=== PATIENT | female | born 1965 | race Caucasian/White ===

== ENCOUNTER 2019-08-04 13:50 | Emergency (ER) | payer MEDICAID, SELFPAY ==
--- NOTE | 2019-08-04 13:56 | XR_ITS ---
WS: [id number] PORTABLE CHEST HISTORY: cp COMPARISON: 10/31/2018 New interstitial thickening and increasing opacification at the lingula. Otherwise lungs are clear. N ormal vasculature. No pleural effusion or pneumothorax. Cardiac size: Normal. Mediastinum/Aorta: Calcified hilar nodes bilaterally. No osseous abnormality seen. XR/XR chest 1V portable [id number] IMPRESSION: Development of lingular pneumonia.
--- NOTE | 2019-08-04 13:56 | ECG_ITS ---
Measurements Intervals [place] Rate: 90 P: 63 RI: 173 QRS: 37 QRSD: 79 T: 54 QT: 367 QTc: 451 SINUS RHYTHM Compared to ECG 03/10/2017 17:48:15 T-wave abnormality no longer present Electronically Signed On 08-04-2019 16:19:48 VISUAL EFFECTS ARTIST by Yair Mario M.D. [email or web address]
--- NOTE | 2019-08-04 13:56 | ED_ITS ---
Entered by Celi Luke, acting as scribe for Zahida Rubio MD HPI - Chest Pain General: Chief Complaint: Chest Pain Stated Complaint: chest pain Time Seen by Provider: 08/04/19 13:56 Source: patient and EMS Mode of arrival: EMS Limitations: no limitations History of Present Illness: HPI narrative: 54 yo Female presents to ED with complaint of chest pain and shortness of breath. Pt states that the last time she had pain like this was when she had a pulmonary embolism in 2011. Pt states that her pain radiates to her left shoulder. MD complaint: chest pain Onset (ago): hour(s) (this morning) Timing of current episode: still present Prior episodes: Yes Onset: during rest Pain location: left chest Pain radiation: left shoulder Pain scale (0-10): 8 Quality: other (constant) Relieving factors: nothing Exacerbating factors: nothing Associated symptoms: Reports dyspnea; Deny abdominal pain, fever(s), nausea or vomiting Treatment prior to arrival: oxygen Risk Factors: Pulmonary embolism risk factors: history of pulmonary embolism Review of Systems Const: Denies: fever, chills, body aches or change in appetite Eyes: Denies: blurry vision or eye discomfort ENMT: Denies: throat pain or dental pain Card: Reports: chest pain, shortness of breath on exertion and shortness of breath when lying down Resp: Reports: shortness of breath GI: Denies: abdominal pain, nausea, vomiting or diarrhea : Denies: painful urination Musc: Denies: neck pain or back pain Skin/Breast: Denies: rash Neuro: Denies: headache Psych: Denies: depression [place]bin/Lymph: Denies: easy bruising All/Imm: Denies: hives PFSH ED PFSH: Statuses (acute, chronic, etc) shown below reflect problem list status as previously entered and may not be historically accurate Medical History (Updated 08/04/19 @ 16:35 by Zahida Rubio MD) Angina pectoris (Acute) Anxiety (Acute) Atrial fibrillation (Acute) Bipolar disorder (Acute) CAD (coronary artery disease) (Acute) COPD (chronic obstructive pulmonary disease) (Acute) CVA (cerebral vascular accident) (Acute) DVT (deep venous thrombosis) (Acute) Hiatal hernia (Acute) Hyperlipidemia (Acute) Peptic ulcer disease (Acute) Pneumonia (Acute) Social History Smoking and tobacco status: current every day smoker Physical Exam Const: COMMON NORMALS: no apparent distress, oriented x3 and healthy appearing HENMT: COMMON NORMALS: normocephalic and head/scalp atraumatic HEAD & SCALP: normocephalic and atraumatic Eye: COMMON NORMALS: PERRL and EOMs intact bilaterally PUPIL: Yes PERRL Neck/C-Spine: COMMON NORMALS: full ROM and supple Chest: COMMONS NORMALS: inspection of chest normal and palpation of chest normal Resp: COMMON NORMALS: normal respiratory effort, no retractions, no use of accessory muscles and clear to auscultation bilaterally AUSCULTATION: clear to auscultation bilaterally Cardio: COMMON NORMALS: regular rate, regular rhythm and no murmurs RATE: regular rate RHYTHM: regular rhythm GI: COMMON NORMALS: normal to inspection, nondistended, normoactive bowel sounds, soft to palpation, non-tender and no masses PALPATION: Yes soft Extremity: COMMON NORMALS: normal to inspection and full ROM LEFT UPPER EXTREMITY: Yes shoulder joint (Point tender over left shoulder) Left shoulder joint: Yes palpation (pain reproducible) Neuro: COMMON NORMALS: oriented x3, moves all extremities and no focal motor deficits Psych: COMMON NORMALS: mental status grossly normal, thought process normal and cooperative THOUGHT PROCESS: normal thought process Skin: COMMON NORMALS: no rashes or lesions noted and no wounds GENERAL SKIN EXAM: no rashes or lesions noted Course Vital Signs: Vital signs: Vital Signs Temperature 98 F 08/04/19 14:01 Pulse Rate 93 08/04/19 14:01 Respiratory Rate 18 08/04/19 14:24 Blood Pressure 141/89 08/04/19 14:01 Pulse Oximetry 98 08/04/19 14:24 MDM - Chest Pain Lab Data: Labs: Lab Results 08/04/19 08/04/19 08/04/19 Range/Units 14:09 14:09 14:09 WBC 10.4 H (4.0-10.0) 10^3/ uL RBC 4.32 (4.1-5.3) 10^6/u L Hgb 13.4 (11.5-15.3) g/dL Hct 41.9 (37.0-47.0) % MCV 97.0 (81-99) fL MCH 31.0 (28.0-34.0) pg MCHC 32.0 (30.0-36.0) g/dL RDW 12.6 (12.1-15.1) % Plt Count 212 (130-400) 10^3/c mm MPV 10.7 H (7.4-10.4) fL Neut % (Auto) 62.6 % Lymph % (Auto) 31.5 % [place] % (Auto) 4.1 % Eos % (Auto) 0.7 % Baso % (Auto) 0.7 % Neut # (Auto) 6.5 (1.8-7.7) 10^3/u L Lymph # (Auto) 3.3 (0.8-4.8) 10^3/u L [place] # (Auto) 0.4 (0.2-0.9) 10^3/u L Eos # (Auto) 0.1 (0.0-0.8) 10^3/u L Baso # (Auto) 0.1 (0.0-0.1) 10^3/u L Nucleated RBC % (a uto) 0 % Nucleated RBCs # 0.0 /100WBC PT 12.70 (10.5-13.3) SECO NDS INR 0.92 (0.8-1.2) D-Dimer 0.60 H (0-0.59) ug/mIFE U Sodium 137 (136-145) mmol/L Potassium 3.8 (3.5-5.1) mmol/L Chloride 101 (98-107) mmol/L Carbon Dioxide 23 (22-29) mmol/L Anion Gap 16.8 (5-19) BUN 9 (6-20) mg/dL Creatinine 0.9 (0.5-0.9) mg/dL GFR Calculation 65.0 L (90-130) mL/min Glucose 101 (74-109) mg/dL Calcium 10.0 (8.5-10.5) mg/dL Total Bilirubin 0.2 (0.15-1.2) mg/dL AST 15 (0-32) U/L ALT 10 (0-33) U/L Alkaline Phosphata se 83 (35-105) IU/L Troponin T Baselin e (0-10) ng/mL Troponin T 120 Min [place] (0-10) ng/mL Total Protein 7.4 (6.6-8.7) g/dL Albumin 4.1 (3.5-5.2) g/dL Globulin 3.3 (1.3-4.6) g/dL 08/04/19 08/04/19 Range/Units 14:09 16:04 WBC (4.0-10.0) 10^3/ uL RBC (4.1-5.3) 10^6/u L Hgb (11.5-15.3) g/dL Hct (37.0-47.0) % MCV (81-99) fL MCH (28.0-34.0) pg MCHC (30.0-36.0) g/dL RDW (12.1-15.1) % Plt Count (130-400) 10^3/c mm MPV (7.4-10.4) fL Neut % (Auto) % Lymph % (Auto) % [place] % (Auto) % Eos % (Auto) % Baso % (Auto) % Neut # (Auto) (1.8-7.7) 10^3/u L Lymph # (Auto) (0.8-4.8) 10^3/u L [place] # (Auto) (0.2-0.9) 10^3/u L Eos # (Auto) (0.0-0.8) 10^3/u L Baso # (Auto) (0.0-0.1) 10^3/u L Nucleated RBC % (a uto) % Nucleated RBCs # /100WBC PT (10.5-13.3) SECO NDS INR (0.8-1.2) D-Dimer (0-0.59) ug/mIFE U Sodium (136-145) mmol/L Potassium (3.5-5.1) mmol/L Chloride (98-107) mmol/L Carbon Dioxide (22-29) mmol/L Anion Gap (5-19) BUN (6-20) mg/dL Creatinine (0.5-0.9) mg/dL GFR Calculation (90-130) mL/min Glucose (74-109) mg/dL Calcium (8.5-10.5) mg/dL Total Bilirubin (0.15-1.2) mg/dL AST (0-32) U/L ALT (0-33) U/L Alkaline Phosphata se (35-105) IU/L Troponin T Baselin e 6 (0-10) ng/mL Troponin T 120 Min [place] 6.00 (0-10) ng/mL Total Protein (6.6-8.7) g/dL Albumin (3.5-5.2) g/dL Globulin (1.3-4.6) g/dL Imaging Data^: CXR: Radiologist's impression: [place] [address] XRay Report Signed Patient: Jenny Hughes #: [id number] : 1965Acct#:[id number] Age/Sex: 54 / FADM Date: 08/04/19 Loc: ERRoom/Bed: Attending Dr: Ordering Provider/Ordering MD: Zahida Rubio MD Date of Service: 08/04/19 Procedure(s): XR chest 1V portable [id number] Accession Number(s): [id number] Report Number: [id number] WS: [id number] PORTABLE CHEST HISTORY: cp COMPARISON: 10/31/2018 New interstitial thickening and increasing opacification at the lingula. Otherwise lungs are clear. Normal vasculature. No pleural effusion or pneumothorax. Cardiac size: Normal. Mediastinum/Aorta: Calcified hilar nodes bilaterally. No osseous abnormality seen. XR/XR chest 1V portable [id number] IMPRESSION: Development of lingular pneumonia. Dictated By:Marybeth Romero DO Signed By:Marybeth Romero DOSigned Date/Time:08/04/19 1427 DD/ 1426 CTA Chest: Radiologist's impression: [address] [place] [address] CT Scan Report Signed Patient: Jenny Hughes #: [id number] : 1965Acct#:[id number] Age/Sex: 54 / FADM Date: 08/04/19 Loc: ERRoom/Bed: Attending Dr: Ordering Provider/Ordering MD: Zahida Rubio MD Date of Service: 08/04/19 Procedure(s): CT angio chest PE protcl [id number] Accession Number(s): [id number] Report Number: [id number] WS: [id number] CT CHEST ANGIOGRAPHY WITH REFORMATS HISTORY: cp TECHNIQUE: Contiguous axial images are obtained through the chest during arterial injection of intravenous contrast. Images are reconstructed to evaluate the pulmonary arteries. MIP imaging also reviewed. All CT scans at [facility] use at least one of these dose optimization techniques: automated exposure control; mA and/or kV adjustment per patient size (includes targeted exams where dose is matched to clinical indication); or iterative reconstruction. CONTRAST: Omnipaque 350; 95 mL IV. DLP: 458.12 mGy.cm COMPARISON: 05/05/2015 Excellent enhancement of the pulmonary arteries. No filling defects or pulmonary emboli. Pulmonary artery is equal size to the aorta. Mild atherosclerosis of aorta. No aneurysm or dissection. Cardiac chamber size is normal. No pericardial or pleural effusions. Mild haziness over both lungs. Mild dependent changes at the lung bases. Benign granulomata. Benign mediastinal and hilar lymph nodes. Exophytic cyst from the upper pole of the LEFT kidney measures 2.4 cm and is unchanged since 05/05/2015. Visualized liver and adrenal glands are negative. No destructive bone lesions. There is an acute posterior right-sided rib fracture at the ninth rib. Small amount of pleural thickening at the site of the rib fracture. CT/CT angio chest PE protcl [id number] IMPRESSION: 1. No pulmonary embolism. 2. Acute nondisplaced RIGHT ninth rib fracture with adjacent pleural thickening. 3. Mild haziness over both lungs probably related to smoking history. No pneumonia. Dictated By:Marybeth Romero DO Signed By:Marybeth Romero DOSigned Date/Time:08/04/19 1550 DD/ 1544 EKG Data^: EKG 1: Attestation: I personally reviewed and interpreted this EKG as follows: EKG interpretation date: 08/04/19 EKG interpretation time: 14:03 Interpretation: nsr hr [address] or t wave abnormalities qrs 79 qtc 415 Discharge Plan Discharge Patient Disposition: Home, Self-Care Clinical Impression: Atypical chest pain Condition: Stable Prescriptions: New Robaxin-750 750 mg tablet 750 mg PO Q6H Qty: 30 RF: 0 EC-Naprosyn 500 mg tablet,delayed release (DR/EC) 500 mg PO BID PRN (Reason: pain) Qty: 20 RF: 0 Discharge Orders: Discharge Order (Routine); Ordered 08/04/19 Ordered By: Zahida Rubio Referrals: Julia Arroyo DO [Primary Care Provider] - 4-7 days Discharge Diet: Advance as tolerated Discharge Activity: Resume usual activity Patient Instructions: Chest Pain (ED) Coding Level of Care Code ED Ve Teacher for Chg Fwd Exam Problem Focused The documentation recorded by the Marly boswell Carmen, accurately reflects the service I personally performed and the decisions made by Ramiro higginbotham Korby, MD Aug 04, 2019 13:50
[2019-08-04 14:01] VITALS: BP 141/89; PULSE 93; RESP 16; TEMP 36.6; O2SAT 94; BMI 22.3
[2019-08-04 14:22] LABS: INR 0.92 (0.8-1.2)
[2019-08-04 14:24] VITALS: RESP 18; O2SAT 98
[2019-08-04] MEDS: morphine 4 mg/mL SDV 1 mL IVP (14:24)
[2019-08-04 14:29] LABS: Basophils # 0.1 10^3/uL (0.0-0.1); Basophils % 0.7 %; Eosinophils # 0.1 10^3/uL (0.0-0.8); Eosinophils % 0.7 %; Hematocrit 41.9 % (37.0-47.0); Hemoglobin 13.4 g/dL (11.5-15.3); Lymphocytes # 3.3 10^3/uL (0.8-4.8); Lymphocytes % 31.5 %; Mean Platelet Volume 10.7 fL (7.4-10.4); Monocytes # 0.4 10^3/uL (0.2-0.9); Monocytes % 4.1 %; Neutrophils # 6.5 10^3/uL (1.8-7.7); Neutrophils % 62.6 %; Nucleated Red Blood Cells % 0 %; Platelet Count 212 10^3/cmm (130-400); Red Blood Count 4.32 10^6/uL (4.1-5.3); Red Cell Distribution Width 12.6 % (12.1-15.1); White Blood Count 10.4 10^3/uL (4.0-10.0)
[2019-08-04 14:30] LABS: Alanine Aminotransferase 10 U/L (0-33); Albumin Level 4.1 g/dL (3.5-5.2); Alkaline Phosphatase 83 IU/L (35-105); Anion Gap 16.8 (5-19); Aspartate Amino Transferase 15 U/L (0-32); Blood Urea Nitrogen 9 mg/dL (6-20); Carbon Dioxide 23 mmol/L (22-29); Chloride 101 mmol/L (98-107); Globulin 3.3 g/dL (1.3-4.6); Glucose 101 mg/dL (74-109); Potassium 3.8 mmol/L (3.5-5.1); Sodium 137 mmol/L (136-145); Total Bilirubin 0.2 mg/dL (0.15-1.2); Total Protein 7.4 g/dL (6.6-8.7); Troponin(5th) Baseline 6 ng/mL (0-10)
--- NOTE | 2019-08-04 14:47 | CT_ITS ---
WS: [id number] CT CHEST ANGIOGRAPHY WITH REFORMATS HISTORY: cp TECHNIQUE: Contiguous axial images are obtained through the chest during arterial injection of intrav enous contrast. Images are reconstructed to evaluate the pulmonary arteries. MIP imaging also reviewe d. All CT scans at [facility] use at least one of these dose optimization techniques: aut omated exposure control; mA and/or kV adjustment per patient size (includes targeted exams where dose is matched to clinical indication); or iterative reconstruction. CONTRAST: Omnipaque 350; 95 mL IV. DLP: 458.12 mGy.cm COMPARISON: 05/05/2015 Excellent enhancement of the pulmonary arteries. No filling defects or pulmonary emboli. Pulmonary ar erika is equal size to the aorta. Mild atherosclerosis of aorta. No aneurysm or dissection. Cardiac ch mitesh size is normal. No pericardial or pleural effusions. Mild haziness over both lungs. Mild dependent changes at the lung bases. Benign granulomata. Benign m ediastinal and hilar lymph nodes. Exophytic cyst from the upper pole of the LEFT kidney measures 2.4 cm and is unchanged since 05/05/20 15. Visualized liver and adrenal glands are negative. No destructive bone lesions. There is an acute posterior right-sided rib fracture at the ninth rib. Small amount of pleural thickening at the site o f the rib fracture. CT/CT angio chest PE protcl [id number] IMPRESSION: 1. No pulmonary embolism. 2. Acute nondisplaced RIGHT ninth rib fracture with adjacent pleural thickenin g. 3. Mild haziness over both lungs probably related to smoking history. No pneum onia.
[2019-08-04] MEDS: iohexol 350 mg/mL 100 mL Btl IV (15:05)
[2019-08-04] MEDS: ketorolac 30 mg/mL INJ 15 MG IVP (15:35)
[2019-08-04] MEDS: ondansetron 2 mg/ML SDV 2 mL 4 MG IVP (15:35)
[2019-08-04 16:28] LABS: Troponin 5 2HR Delta 0 ABS# (0-10)
[2019-08-04 16:43] VITALS: BP 132/85; PULSE 68; RESP 18; O2SAT 98
== END 2019-08-04 16:53 | disposition home or self-care (01) ==
PROVIDERS: Emergency Provider Emergency Medicine; Family Provider Family Medicine; PCP Family Medicine
DX: R07.89 Other chest pain (principal); I25.119 Atherosclerotic heart disease of native coronary artery with unspecified angina pectoris; I48.91 Unspecified atrial fibrillation; J44.9 Chronic obstructive pulmonary disease, unspecified; E78.5 Hyperlipidemia, unspecified; F17.210 Nicotine dependence, cigarettes, uncomplicated
CPT/HCPCS: 36415; 71045; 71275; 80053; 84484; 85025; 85378; 85610; 93005; 96374; 99281; 99284; J1885; J2270; J2405; Q9967

== ENCOUNTER → 2019-08-19 13:55 | Outpatient (BNVA) | payer SELFPAY | PROVIDERS: Family Provider Family Medicine; PCP Family Medicine; Visit Provider Nurse Practitioner | DX: F43.12 Post-traumatic stress disorder, chronic (principal); F42.9 Obsessive-compulsive disorder, unspecified; F15.21 Other stimulant dependence, in remission; F17.218 Nicotine dependence, cigarettes, with other nicotine-induced disorders | CPT/HCPCS: 99214 ==

== ENCOUNTER 2019-09-20 17:53 | Inpatient (IN) | payer MEDICAID, SELFPAY ==
[2019-09-20 18:05] VITALS: BP 111/83; PULSE 100; RESP 16; TEMP 36.7; O2SAT 98; BMI 23.0
--- NOTE | 2019-09-20 18:29 | ED_ITS ---
Entered by Celi Luke, acting as scribe for Boom Ramires DO HPI - Chest Pain General: Chief Complaint: Chest Pain Stated Complaint: CHEST PAIN Time Seen by Provider: 09/20/19 18:04 Source: patient Mode of arrival: EMS Limitations: no limitations History of Present Illness: HPI narrative: 54 yo Female presents to ED with complaint of chest pain. Pt states that this started at 1700 today. Pt states that she had left armpain that radiated down her arm and she had tingling. Pt states that she took nitro on the way to the ED in [place]. Pt states that she was driving when the pain started. Pt states that she has a history of heart attacks. Pt states that she is hurting right now, has dry mouth, and is woozy. Pt's PCP is Dr. Arroyo. Pt states that she has a history of PE. Pt states that she has sharp pain upon inspiration. MD complaint: chest pain Pertinent past history: prior SD Onset (ago): hour(s) Timing of current episode: episodic and still present Prior episodes: Yes Onset: during rest Pain location: substernal Pain radiation: left arm Pain scale (0-10): 7 Quality: sharp Relieving factors: nothing Exacerbating factors: inspiration Context: history of DVT/PE Associated symptoms: Deny abdominal pain, dyspnea, fever(s), nausea, palpitations or vomiting Treatment prior to arrival: nitroglycerin Review of Systems Const: Denies: fever or chills Eyes: Denies: change in vision or blurry vision ENMT: Denies: Change in hearing, nose bleeds, post nasal drip or facial/sinus pain Card: Reports: chest pain; Denies: palpitations, irregular heart rhythm, edema or swelling of feet/ankles Resp: Reports: pain on inspiration; Denies: shortness of breath, productive cough, non-productive cough or wheezing GI: Denies: abdominal pain, nausea or vomiting : Denies: painful urination Musc: Reports: extremity pain; Denies: neck pain, back pain, redness or joint warmth Skin/Breast: Denies: rash, itching or redness Neuro: Denies: headache, dizziness or vertigo Psych: Denies: anxiety PFSH ED PFSH: Medical History (Updated 09/20/19 @ 20:18 by Dario Ball MD) Alcohol dependence, in remission Angina pectoris Anxiety Atrial fibrillation Bipolar disorder CAD (coronary artery disease) COPD (chronic obstructive pulmonary disease) CVA (cerebral vascular accident) DVT (deep venous thrombosis) Hiatal hernia Hyperlipidemia Nicotine dependence, cigarettes, with other nicotine-induced disorders Obsessive-compulsive disorder, unspecified Other stimulant dependence, in remission Peptic ulcer disease Peripheral vascular disease INOCENCIA elevated near 1.4 done in 2016 Pneumonia Post-traumatic stress disorder, chronic Surgical History (Updated 09/20/19 @ 20:18 by Dario Ball MD) H/O cardiac catheterization 2016 Normal coronary vessels EF 70% H/O: hysterectomy History of hip surgery History of partial colectomy Family History (Updated 09/20/19 @ 20:16 by Dario Ball MD) Other CAD (coronary artery disease) Cancer Diabetes Hypertension Social History Smoking and tobacco status: light tobacco smoker cigarettes Smoking risk assessment/counseling performed?: Yes Tobacco counseling given: counseling >3 minutes Physical Exam Const: GENERAL APPEARANCE: well developed ORIENTATION/CONSCIOUSNESS: Yes oriented to person, Yes oriented to place and Yes oriented to time HENMT: COMMON NORMALS: normocephalic, external ears normal and external nose normal HEAD & SCALP: normocephalic FACE & SINUS: normal facial exam NOSE: external nose normal and no nasal discharge EXTERNAL EAR: Yes external ears normal MOUTH: tongue normal Eye: COMMON NORMALS: PERRL, EOMs intact bilaterally and conjunctivae normal EYELID: eyelids normal CONJUNCTIVA: Yes conjunctivae normal PUPIL: Yes PERRL Neck/C-Spine: COMMON NORMALS: full ROM GENERAL: No tracheal deviation Chest: COMMONS NORMALS: inspection of chest normal; negative for palpation of chest normal CHEST: Yes tenderness Resp: COMMON NORMALS: clear to auscultation bilaterally EFFORT & INSPECTION: No tachypneic, No respiratory distress, No retractions, No uses accessory muscles and No tracheal deviation AUSCULTATION: clear to auscultation bilaterally, no rhonchi, no wheezes and lung sounds not diminished Cardio: COMMON NORMALS: regular rate and regular rhythm RATE: regular rate RHYTHM: regular rhythm HEART SOUNDS: no murmurs PERIPHERAL PULSES: radial pulses present GI: INSPECTION: No abdominal distension AUSCULTATION: No hyperactive bowel sounds and No hypoactive bowel sounds PALPATION: No guarding and No rigid PERCUSSION: no dullness to percussion and no tympanic to percussion Neuro: SENSORIUM/ORIENTATION: Yes oriented to person, Yes oriented to place and Yes oriented to time Psych: COMMON NORMALS: mental status grossly normal Skin: COMMON NORMALS: no rashes or lesions noted GENERAL SKIN EXAM: no rashes or lesions noted Course Consultations: Consultation #1: mart Vital Signs: Vital signs: Vital Signs Temperature 99.3 F 09/20/19 22:42 Pulse Rate 81 09/20/19 22:42 Respiratory Rate 21 H 09/20/19 22:42 Blood Pressure 119/75 09/20/19 22:42 Pulse Oximetry 96 09/20/19 22:42 MDM - Chest Pain MDM Narrative: Medical decision making narrative: 54-year-old female evidently with a history of pulmonary embolism. She says that she has had a couple of heart attacks, but is never had a stent placed. She had a angiogram 2 years ago with no intervention. She presents with pain, worse with inspiration. She is somewhat tender in the chest. Her first troponin was negative. Her d-dimer is negative. Her EKG is essentially normal with a normal axis and no ST changes. However, she had a short run of ventricular tachycardia on the monitor in the ER, and was quite symptomatic with it, clutching her chest during that time. She will be observed for 24 hours for continued monitoring. Lab Data: Labs: Lab Results 09/20/19 09/20/19 09/20/19 Range/Units 18:42 18:42 18:42 WBC 9.3 (4.0-10.0) 10^3/ uL RBC 4.48 (4.1-5.3) 10^6/u L Hgb 13.6 (11.5-15.3) g/dL Hct 41.7 (37.0-47.0) % MCV 93.1 (81-99) fL MCH 30.4 (28.0-34.0) pg MCHC 32.6 (30.0-36.0) g/dL RDW 12.4 (12.1-15.1) % Plt Count 224 (130-400) 10^3/c mm MPV 11.0 H (7.4-10.4) fL Neut % (Auto) 52.6 % Lymph % (Auto) 41.7 % [place] % (Auto) 4.1 % Eos % (Auto) 0.6 % Baso % (Auto) 0.8 % Neut # (Auto) 4.9 (1.8-7.7) 10^3/u L Lymph # (Auto) 3.9 (0.8-4.8) 10^3/u L [place] # (Auto) 0.4 (0.2-0.9) 10^3/u L Eos # (Auto) 0.1 (0.0-0.8) 10^3/u L Baso # (Auto) 0.1 (0.0-0.1) 10^3/u L Nucleated RBC % (a uto) 0 % Nucleated RBCs # 0.0 /100WBC PT 12.60 (10.5-13.3) SECO NDS INR 0.92 (0.8-1.2) APTT 26.4 (23.9-36.7) SECO NDS D-Dimer (0-0.59) ug/mIFE U Sodium 136 (136-145) mmol/L Potassium 4.3 (3.5-5.1) mmol/L Chloride 102 (98-107) mmol/L Carbon Dioxide 23 (22-29) mmol/L Anion Gap 15.3 (5-19) BUN 10 (6-20) mg/dL Creatinine 0.8 (0.5-0.9) mg/dL GFR Calculation 74.5 L (90-130) mL/min Glucose 93 (65-115) mg/dL Calculated Osmolal ity 278 L (285-295) mOsm/k g Calcium 9.8 (8.5-10.5) mg/dL Total Bilirubin 0.2 (0.15-1.2) mg/dL AST 16 (0-32) U/L ALT 7 (0-33) U/L Alkaline Phosphata se 70 (35-105) IU/L Troponin T Baselin e (0-10) ng/mL NT-Pro-B Natriuret Pep 27 (0-125) pg/mL Total Protein 6.7 (6.6-8.7) g/dL Albumin 4.2 (3.5-5.2) g/dL Globulin 2.5 (1.3-4.6) g/dL 09/20/19 09/20/19 Range/Units 18:42 18:42 WBC (4.0-10.0) 10^3/ uL RBC (4.1-5.3) 10^6/u L Hgb (11.5-15.3) g/dL Hct (37.0-47.0) % MCV (81-99) fL MCH (28.0-34.0) pg MCHC (30.0-36.0) g/dL RDW (12.1-15.1) % Plt Count (130-400) 10^3/c mm MPV (7.4-10.4) fL Neut % (Auto) % Lymph % (Auto) % [place] % (Auto) % Eos % (Auto) % Baso % (Auto) % Neut # (Auto) (1.8-7.7) 10^3/u L Lymph # (Auto) (0.8-4.8) 10^3/u L [place] # (Auto) (0.2-0.9) 10^3/u L Eos # (Auto) (0.0-0.8) 10^3/u L Baso # (Auto) (0.0-0.1) 10^3/u L Nucleated RBC % (a uto) % Nucleated RBCs # /100WBC PT (10.5-13.3) SECO NDS INR (0.8-1.2) APTT (23.9-36.7) SECO NDS D-Dimer 0.33 (0-0.59) ug/mIFE U Sodium (136-145) mmol/L Potassium (3.5-5.1) mmol/L Chloride (98-107) mmol/L Carbon Dioxide (22-29) mmol/L Anion Gap (5-19) BUN (6-20) mg/dL Creatinine (0.5-0.9) mg/dL GFR Calculation (90-130) mL/min Glucose (65-115) mg/dL Calculated Osmolal ity (285-295) mOsm/k g Calcium (8.5-10.5) mg/dL Total Bilirubin (0.15-1.2) mg/dL AST (0-32) U/L ALT (0-33) U/L Alkaline Phosphata se (35-105) IU/L Troponin T Baselin e 6 (0-10) ng/mL NT-Pro-B Natriuret Pep (0-125) pg/mL Total Protein (6.6-8.7) g/dL Albumin (3.5-5.2) g/dL Globulin (1.3-4.6) g/dL Discharge Plan Discharge Patient Disposition: Admitted As Inpatient Admit Provider: Dario Ball Discharge Date/Time: 09/20/19 22:22 Coding Level of Care Code ED Straw Hat Machine Operator for Chg Fwd Exam Comprehensive The documentation recorded by the Marly boswell Carmen, accurately reflects the service I personally performed and the decisions made by , Boom Ramires, DO
--- NOTE | 2019-09-20 18:33 | XR_ITS ---
WS: [id number] XR chest 1V portable [id number] REASON FOR EXAM: cp FINDINGS: Calcified lymph nodes are seen in the mediastinum and hilar areas bilaterally the largest i n the mediastinum. The lung [place] are adequately aerated. There is no pneumonia, pleural effusion, pulmonary edema, There is a small calcified granuloma in the right lung base. There is no hilar or apical abnormalities. XR/XR chest 1V portable [id number] IMPRESSION: Granulomatous changes in the lymph nodes Small granuloma right lower lung No active processes.
[2019-09-20 18:54] LABS: Basophils # 0.1 10^3/uL (0.0-0.1); Basophils % 0.8 %; Eosinophils # 0.1 10^3/uL (0.0-0.8); Eosinophils % 0.6 %; Hematocrit 41.7 % (37.0-47.0); Hemoglobin 13.6 g/dL (11.5-15.3); Lymphocytes # 3.9 10^3/uL (0.8-4.8); Lymphocytes % 41.7 %; Mean Corpuscular HGB Conc 32.6 g/dL (30.0-36.0); Mean Corpuscular Hemoglobin 30.4 pg (28.0-34.0); Mean Corpuscular Volume 93.1 fL (81-99); Monocytes # 0.4 10^3/uL (0.2-0.9); Monocytes % 4.1 %; Neutrophils # 4.9 10^3/uL (1.8-7.7); Neutrophils % 52.6 %; Nucleated Red Blood Cells % 0 %; Platelet Count 224 10^3/cmm (130-400); Red Blood Count 4.48 10^6/uL (4.1-5.3); Red Cell Distribution Width 12.4 % (12.1-15.1); White Blood Count 9.3 10^3/uL (4.0-10.0)
[2019-09-20 19:02] LABS: INR 0.92 (0.8-1.2)
[2019-09-20 19:03] LABS: Partial Thromboplastin Time 26.4 SECONDS (23.9-36.7)
[2019-09-20] MEDS: ondansetron 2 mg/ML SDV 2 mL 4 MG IVP (19:05)
[2019-09-20 19:06] VITALS: RESP 18; O2SAT 97
[2019-09-20] MEDS: morphine 4 mg/mL SDV 1 mL IVP ×4 (19:06→22:18)
[2019-09-20 19:10] LABS: Troponin(5th) Baseline 6 ng/mL (0-10)
[2019-09-20 19:23] LABS: Alanine Aminotransferase 7 U/L (0-33); Albumin Level 4.2 g/dL (3.5-5.2); Alkaline Phosphatase 70 IU/L (35-105); Anion Gap 15.3 (5-19); Aspartate Amino Transferase 16 U/L (0-32); Blood Urea Nitrogen 10 mg/dL (6-20); Calcium 9.8 mg/dL (8.5-10.5); Carbon Dioxide 23 mmol/L (22-29); Chloride 102 mmol/L (98-107); Globulin 2.5 g/dL (1.3-4.6); Glomerular Filtration Rate 74.5 mL/min (90-130); Glucose 93 mg/dL (65-115); NT Pro B Type Natriuretic Pept 27 pg/mL (0-125); Osmolality Calculated 278 mOsm/kg (285-295); Potassium 4.3 mmol/L (3.5-5.1); Sodium 136 mmol/L (136-145); Total Bilirubin 0.2 mg/dL (0.15-1.2); Total Protein 6.7 g/dL (6.6-8.7)
[2019-09-20 19:28] LABS: D Dimer 0.33 ug/mIFEU (0-0.59)
[2019-09-20 19:55] VITALS: RESP 16
--- NOTE | 2019-09-20 20:09 | P.HP_ITS ---
Providers/Chief Complaint Primary Care Provider: Julia Arroyo DO Chief Complaint: CHEST PAIN History of Present Illness Jenny Hughes is a 54 year old female with a multiple comorbid conditions, established coronary disease, recurrent admissions in the past due to chest pain with stress test almost every year in last 3 years, cardiac catheterization 2012 at [place] which revealed normal coronary vessels, she was diagnosed with nonobstructive coronary disease, repeat coronary angiogram 2015, her stress tests have been negative in the past today she is presenting with chest pain. Patient is stating that today she was driving back to [place] around 5 PM with her son and future [id number] when she started experiencing sharp stabbing pain which was substernal, she asked her son to drive and she sat in the passenger seat, took 1 sublingual nitroglycerin which subsided her pain to some extent but it reappeared after 5 minutes, at that time she asked her son to tack puller machine and call 911. this second episode she described as butterfly-like feeling in her chest which subsided on its own. Patient is stating that she smokes half a pack a day, she is trying to cut down on her alcohol she has been successfully controlling her alcohol addiction at home, she denies chest pain on exertion, orthopnea, PND, diarrhea, dysuria, recent traveling or flulike symptoms she does endorse to shortness of breath on exertion, does not use oxygen at home. She is fairly active for her age. Diagnostics in ER revealed normal EKG, troponin not significantly high, she was chest pain-free, she was well to be discharged but on telemetry nonsustained V. tach was noticed and then she started experiencing chest discomfort at that time, decision was made to admit her overnight to monitor her heart rhythm, when I went to see her she was eating turkey sandwich, she was chest pain-free, hemodynamically stable Review of Systems Const: Denies: fever, chills or change in weight Eyes: Denies: change in vision or photophobia ENMT: Denies: throat pain or uvular edema Card: Reports: chest pain, palpitations, irregular heart rhythm and shortness of breath on exertion; Denies: edema, swelling of feet/ankles, lightheadedness, syncope, pre-syncope or shortness of breath when lying down Resp: Reports: shortness of breath; Denies: productive cough or non-productive cough GI: Denies: abdominal pain, nausea or coffee grounds in vomit : Denies: flank pain or difficulty urinating Musc: Denies: neck pain or back pain Skin/Breast: Denies: rash, itching or skin pain Neuro: Denies: headache, numbness in extremities or weakness in extremities Psych: Denies: anxiety, depression or sleeping less Endo: Denies: excessive urination, excessive thirst or cold intolerance Corbin/Lymph: Denies: easy bruising All/Imm: Denies: hives Medications/Allergies Home Medications Medication Instructions Recorded Confirmed Last Taken Type cyclobenzaprine 10 mg PO BID 09/20/19 09/20/19 09/20/19 09:30 History estradiol 1 mg PO DAILY 09/20/19 09/20/19 09/20/19 09:30 History naproxen 500 mg PO BID 09/20/19 09/20/19 09/20/19 09:30 History oxycodone-acetaminophen [Percocet] 2 tab PO BID 09/20/19 09/20/19 09/20/19 09:30 History Allergies Allergy/AdvReac Type Severity Reaction Status Date / Time acetaminophen [From Lortab] Allergy ALGY-Hives Verified 08/04/19 14:33 baclofen Allergy ADR-Faintin Verified 08/04/19 14:33 g hydrocodone [From Lortab] Allergy ALGY-Hives Verified 08/04/19 14:33 ibuprofen Allergy ADR-Vomitin Verified 08/04/19 14:32 g PFSH Acute PFSH: Medical History (Updated 09/20/19 @ 23:05 by Dario Ball MD) Alcohol dependence, in remission Angina pectoris Anxiety Atrial fibrillation Bipolar disorder CAD (coronary artery disease) COPD (chronic obstructive pulmonary disease) CVA (cerebral vascular accident) DVT (deep venous thrombosis) Hiatal hernia Hyperlipidemia Nicotine dependence, cigarettes, with other nicotine-induced disorders Obsessive-compulsive disorder, unspecified Other stimulant dependence, in remission Peptic ulcer disease Peripheral vascular disease INOCENCIA elevated near 1.4 done in 2016 Pneumonia Post-traumatic stress disorder, chronic Surgical History (Updated 09/20/19 @ 20:18 by Dario Ball MD) H/O cardiac catheterization 2016 Normal coronary vessels EF 70% H/O: hysterectomy History of hip surgery History of partial colectomy Family History (Updated 09/20/19 @ 20:16 by Dario Ball MD) Other CAD (coronary artery disease) Cancer Diabetes Hypertension Social History Smoking and tobacco status: light tobacco smoker cigarettes Smoking risk assessment/counseling performed?: Yes Tobacco counseling given: counseling >3 minutes Vitals/I&O/Wt Last Vital Signs Temp 98.1 F 09/20/19 18:05 Pulse 100 09/20/19 18:05 Resp 16 09/20/19 19:55 BP 111/83 09/20/19 18:05 Pulse Ox 97 09/20/19 19:06 Weight last 48 hrs Weight 58.967 kg Physical Exam Narrative: EXAM NARRATIVE: This is a very pleasant middle-aged woman, Appropriate grooming S1, S2 no signs of heart failure, giving nondetectable EOMI, PERRLA Lung auscultation reveals bilateral breath sounds without adventitious sounds, no active respiratory stress Abdomen soft, nontender, nondistended bowels are present Neurologically nonfocal exam Skin does not show any sign ischemia gangrene ulcer Appropriate mood and affect Data : 09/20/19 18:42 09/20/19 18:42 A&P Assessment and plan (1) Atypical chest pain: Status: Acute Code(s): R07.89 - Other chest pain (2) Nonsustained ventricular tachycardia: Status: Acute Code(s): I47.2 - Ventricular tachycardia (3) Smoker: Status: Acute Code(s): F17.200 - Nicotine dependence, unspecified, uncomplicated Additional A&P Information Atypical chest pain Patient is able to pinpoint her area of chest pain, it is reproducible, did not completely relieved with nitroglycerin, troponins negative, EKG does not show any ischemic changes Telemetry to second read of nonsustained V. tach We will check magnesium and TSH level I will add beta-lamont low-dose and discontinue propanolol Echo in the morning to see any wall motion versus valvular abnormalities Active smoker: Counseled on smoking cessation, patient does not want to use any nicotine replacement therapies at the moment Alcohol abuse: Patient is stating that she is successfully recovering from her alcohol addiction History of hiatal hernia and peptic ulcer disease: No active complaint, continue Protonix and sucralfate that she takes at home Chronic herpes suppressive therapy : Continue acyclovir, no abnormality of kidney Full code Cardiac diet DVT prophylaxis: Lovenox Attestations Medical Necessity Statement*: Anticipating discharge in less than 48 hours after getting echo in the morning to rule out any wall motion abnormality Time Spent in Patient Care: 40 Coding Level of Care Code Acute Healthcare Analyst for [facility] Diagnoses Atypical chest pain R07.89 Nonsustained ventricular tachycardia I47.2 Smoker F17.200
--- NOTE | 2019-09-20 20:33 | ECG_ITS ---
Measurements Intervals [place] Rate: 72 P: 63 ND: 188 QRS: 26 QRSD: 91 T: 46 QT: 410 QTc: 450 SINUS RHYTHM Compared to ECG 08/04/2019 14:03:48 No significant changes Electronically Signed On 09-21-2019 17:24:17 CDT by Yair Mario M.D. [email or web address]
[2019-09-20] MEDS: lidocaine 2% viscous 15 ML, aluminum-mag hydrox-simethicon 30 ML, sucralfate oral liq 1 GM PO (20:36)
[2019-09-20 21:01] LABS: Troponin 5 2HR Delta 0 ABS# (0-10)
[2019-09-20 21:48] VITALS: BP 111/73; PULSE 78; RESP 18; O2SAT 95
[2019-09-20 22:18] VITALS: RESP 18; O2SAT 98
--- NOTE | 2019-09-20 22:30 | PC.NURSE ---
Admitted to room 112-1 via wheelchair from ED with complaint of sharp stabbing pain in my back. Oriented to room. Denies complaints at this time. Just need my night time meds. Assessment completed and documented. Will monitor.
[2019-09-20 22:42] VITALS: BP 119/75; PULSE 81; RESP 21; TEMP 37.4; O2SAT 96
[2019-09-20 23:35] LABS: Thyroid Stimulating Hormone 1.18 uIU/mL (0.27-4.20)
[2019-09-20] MEDS: PARoxetine 20 mg Tablet 10 MG PO (23:44)
[2019-09-20] MEDS: enoxaparin 40 mg/0.4 mL Syringe SUBCUT (23:46)
[2019-09-21] VITALS (9 sets, daily range): BP systolic 83–115; BP diastolic 49–75; PULSE 77–87; RESP 16–21; TEMP 36.4–37.4; O2SAT 91–96
[2019-09-21] MEDS: trazodone 100 mg Tablet PO ×2 (00:21→21:08)
[2019-09-21] MEDS: quetiapine 100 mg Tablet 400 MG PO ×2 (00:22→21:09)
[2019-09-21 01:17] LABS: Troponin 5 6HR Delta 0 ng/L (0-12)
[2019-09-21 05:19] LABS: Basophils # 0.1 10^3/uL (0.0-0.1); Basophils % 0.9 %; Eosinophils # 0.1 10^3/uL (0.0-0.8); Eosinophils % 1.2 %; Hematocrit 39.1 % (37.0-47.0); Hemoglobin 12.5 g/dL (11.5-15.3); Lymphocytes # 3.7 10^3/uL (0.8-4.8); Mean Corpuscular Hemoglobin 30.3 pg (28.0-34.0); Mean Corpuscular Volume 94.7 fL (81-99); Monocytes # 0.3 10^3/uL (0.2-0.9); Monocytes % 4.5 %; Neutrophils # 2.3 10^3/uL (1.8-7.7); Neutrophils % 36.1 %; Nucleated Red Blood Cells % 0 %; Platelet Count 202 10^3/cmm (130-400); Red Blood Count 4.13 10^6/uL (4.1-5.3); Red Cell Distribution Width 12.6 % (12.1-15.1); White Blood Count 6.4 10^3/uL (4.0-10.0)
[2019-09-21 05:40] LABS: Alanine Aminotransferase 7 U/L (0-33); Albumin Level 3.5 g/dL (3.5-5.2); Alkaline Phosphatase 62 IU/L (35-105); Anion Gap 13.8 (5-19); Aspartate Amino Transferase 15 U/L (0-32); Blood Urea Nitrogen 12 mg/dL (6-20); Calcium 9.2 mg/dL (8.5-10.5); Carbon Dioxide 25 mmol/L (22-29); Chloride 103 mmol/L (98-107); Globulin 2.7 g/dL (1.3-4.6); Glucose 109 mg/dL (65-115); Osmolality Calculated 283 mOsm/kg (285-295); Potassium 3.8 mmol/L (3.5-5.1); Sodium 138 mmol/L (136-145); Total Bilirubin 0.2 mg/dL (0.15-1.2); Total Protein 6.2 g/dL (6.6-8.7)
[2019-09-21] MEDS: sucralfate 1 gm Tablet PO ×4 (06:09→21:08)
[2019-09-21] MEDS: aspirin 81 mg EC Tablet PO (08:11)
[2019-09-21] MEDS: gabapentin 300 mg Capsule 600 MG PO ×2 (08:11→17:26)
[2019-09-21] MEDS: pantoprazole DR 40 mg Tablet PO (08:11)
[2019-09-21] MEDS: metoprolol tartrate 25 mg Tablet 12.5 MG PO ×2 (08:11→17:26)
[2019-09-21] MEDS: acyclovir 400 mg Tablet PO (08:12)
[2019-09-21] MEDS: isosorbide mononitrate ER 30 mg Tablet 15 MG PO (08:12)
[2019-09-21] MEDS: oxyCODONE-APAP 10-325 mg Tablet 1 TAB PO ×2 (09:34→21:07)
--- NOTE | 2019-09-21 11:13 | PC.NURSE ---
patient asked to walk around the unit after a few min with no return to room this nurse went to look for patient Found locked out side of the hospital Patient stated I just wanted fresh air. I didn't know I would get locked out Patient educated patient on the importance of staying on the unit where she is being treated due to the high risk of injury patient verbalized understanding and was escorted by this nurse back to her bed
--- NOTE | 2019-09-21 14:14 | ECG_ITS ---
NAME OF STUDY: LEXISCAN SESTAMIBI STRESS TEST INDICATION: Chest Pain PROCEDURE: At the baseline, the blood pressure was 109/62 mm Hg with a heart rate of 65 bpm. The electrocardiogram showed normal sinus rhythm, normal axis and normal ST and T's. The Lexiscan was infused over a period of 20 seconds. A total of 0.4 milligrams of Lexiscan was infused. The stress phase was continued for a total of 5 minutes. Heart rate at the end of the stress phase was 87 bpm, oxygen saturation 98% with a blood pressure 151/94 mmHg. The EKG at the peak infusion revealed sinus rhythm with no significant ST-T wave changes. Sestamibi was injected 20 seconds after the Lexiscan infusion. Blood pressure at the end of the recovery phase was 94/60 mmHg, oxygen saturation 98% with a heart rate of 83 beats per minute. CONCLUSION: 1. Normal EKG response to LexiScan infusion. 2. No LexiScan induced chest pain or cardiac arrhythmia. 3. Normal blood pressure and heart rate response. 4. Sestamibi/sestamibi perfusion scan pending; see separate report. Electronically Signed On 09-22-2019 13:26:06 CDT by Morena Orr M.D. [id number]
--- NOTE | 2019-09-21 15:28 | PC.CHAP ---
Pastoral Care Encounter/Spiritual Assessment Type of Contact [] Declined commercial drafter visit [] Patient/Family/Request visit [] Outpatient visit [] Follow-up visit [] Physician referral [] Code/Alert [] Routine visit [] Staff referral [] Actively dying [x] Patient sleeping [] Family support [] [] Out of room [] Palliative care [] [] Receiving care in room [] Pre-surgical visit [] Trauma [] Long length of stay [] ICU visit [] Other: Relational/Emotional Strength [] Patient feels connected with others/family/visitors/staff [] Distress [] Loneliness/isolation [] Abandonment Spirituality of Patient [] Person of Elizabeth [] Attends Hindu of their Elizabeth [] Believes in Prayer [] Reads Bible or Lutheran materials [] There are Spiritual issues to be addressed Sap Director Interventions [] Prayer [] Active listening [] Non-anxious presence [] Spiritual/emotional support [] Crisis/trauma care [] Spiritual counseling [] Bereavement support [] Provided bereavement packet [] Provided Bible/devotional materials [] Provided toy/stuffed animal, coloring book to patient or family member [] Provided Communion [] Anointing/[place] [] Salvation [] Completed spiritual assessment [] Other: Impact on Illness or Injury [] Angry [] Fearful [] Anxious [] Often cries [] Exhaustion [] Unable to work [] Unable to attend muslim [] Unable to walk/stand [] Unable to read [] Unable to drive [] Unable to eat/drink [] Unable to sleep [] Unable to be with family [] Patient intubated [] Other: Summary Patient was sleeping at the time of commercial drafter visit. Sap Director referred patient for a follow up visit by incoming commercial drafter. Patient visit was attempted by Sap Director Panchito Mcgee. Time spent with patient 7 minutes
--- NOTE | 2019-09-21 18:10 | P.PN_ITS ---
Subjective Subjective: Interval history: Patient states that she had an episode of chest pain yesterday, while driving, substernal, lasting a few minutes, much like the substernal chest pain when she had a cardiac catheterization, continues to smoke, does have a family history of CAD in her father, her last cardiac catheterization in 2017 showed a 30% disease in the RCA, states that the last ti me she saw Dr. Major was about a year ago, no other episodes of chest palpitations, no repeat episodes of nonsustained V. tach Vitals/I&O/Wt Last Vital Signs Temp 97.6 F 09/21/19 15:59 Pulse 77 09/21/19 15:59 Resp 18 09/21/19 15:59 BP 95/64 09/21/19 15:59 Pulse Ox 93 09/21/19 15:59 09/21/19 09/21/19 09/21/19 06:59 14:59 22:59 Intake Total 120 / 120 920 / 920 240 / 1160 Balance 120 / 120 920 / 920 240 / 1160 Weight last 48 hrs Weight 58.967 kg Physical Exam Const: COMMON NORMALS: no apparent distress and oriented x3 HENMT: COMMON NORMALS: normocephalic HEAD & SCALP: normocephalic Neck/C-Spine: COMMON NORMALS: no JVD Resp: COMMON NORMALS: normal respiratory effort, no retractions, no use of accessory muscles and clear to auscultation bilaterally AUSCULTATION: clear to auscultation bilaterally Cardio: COMMON NORMALS: no JVD, regular rate, regular rhythm, S1 normal heart sound and S2 normal heart sound RATE: regular rate RHYTHM: regular rhythm HEART SOUNDS: S1 normal and S2 normal GI: COMMON NORMALS: normal to inspection, nondistended, normoactive bowel sounds, soft to palpation, non-tender, no hepatosplenomegaly, no masses and no bruits PALPATION: Yes soft and Yes no hepatosplenomegaly Extremity: COMMON NORMALS: normal capillary refill, no clubbing, cyanosis or edema, no calf tenderness and no pedal edema Neuro: COMMON NORMALS: oriented x3 Psych: COMMON NORMALS: mental status grossly normal Data : 09/21/19 05:00 09/21/19 05:00 A&P Assessment and plan (1) Nonsustained ventricular tachycardia: Status: Acute Code(s): I47.2 - Ventricular tachycardia (2) Smoker: Status: Acute Code(s): F17.200 - Nicotine dependence, unspecified, uncomplicated (3) Chest pain: -Given significant risk factors, cardiac symptoms do sound cardiac in nature, history of 30% disease in RCA, episode of nonsustained V. tach in the emergency room -No significant troponin elevation, acute ST-T wave changes -N.p.o. midnight, cardiac stress test tomorrow morning -Continue aspirin, statin, beta-lamont, echocardiogram pending Status: Acute Code(s): R07.9 - Chest pain, unspecified Additional A&P Information Active smoker: Counseled on smoking cessation, patient does not want to use any nicotine replacement therapies at the moment Alcohol abuse: Patient is stating that she is successfully recovering from her alcohol addiction History of hiatal hernia and peptic ulcer disease: No active complaint, continue Protonix and sucralfate that she takes at home Chronic herpes suppressive therapy : Continue acyclovir, no abnormality of kidney Full code Cardiac diet DVT prophylaxis: Lovenox Attestations Medical Necessity Statement*: She requires hospitalization for chest pain, nonsustained V. tach Coding Level of Care Code Acute Order Builder Loader for [facility] Diagnoses Nonsustained ventricular tachycardia I47.2 Smoker F17.200 Chest pain R07.9
[2019-09-21] MEDS: atorvastatin 40 mg Tablet PO (21:07)
[2019-09-21] MEDS: PARoxetine 20 mg Tablet 10 MG PO (21:08)
--- NOTE | 2019-09-21 21:53 | PC.NURSE ---
Patient up ambulating earlier this shift in the [place]. This nurse found out that she had went down to the ED door and went outside to smoke. Informed patient that this facility was a smoke free facility and asked her about a nicotene patch. Patient states, Those patches don't work on me.....I have to have a cigarette now and then...I just have too. This nurse spoke with patient about smoking cessation. 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 Will monitor.
[2019-09-21] MEDS: enoxaparin 40 mg/0.4 mL Syringe SUBCUT (22:37)
--- NOTE | 2019-09-21 22:52 | USCV_ITS ---
Jenny Hughes Age: 54 Gender: F : 1965 Exam Date: 09/21/2019 09:45 Ordering Phys: Dario Ball MD Technologist: Joselito Barboza Exam Location: [facility] [place] Indication: CHEST PAIN BP: 86 / 49 HR: 75 Rhythm: Sinus Technical Quality: Good MEASUREMENTS (Male / Female) Normal Values 2D ECHO LV Diastolic Diameter PLAX 4.2 cm 4.2 - 5.9 / 3.9 - 5.3 cm LV Systolic Diameter PLAX 2.4 cm IVS Diastolic Thickness 1.1 cm 0.6 - 1.0 / 0.6 - 0.9 cm IVS Systolic Thickness 1.4 cm LVPW Diastolic Thickness 0.9 cm 0.6 - 1.0 / 0.6 - 0.9 cm LVPW Systolic Thickness 1.4 cm LVOT Diameter 2.1 cm LV Ejection Fraction 2D Teich 74.4 % LV Ejection Fraction MOD 2C 62.2 % LV Ejection Fraction 2C AL 62.4 % LA Diameter 3.7 cm LA Width 3.5 cm LA Height 3.8 cm RA Width 3.2 cm RA Height 4.2 cm Aorta at Sinotubular Diameter 2.6 cm M-MODE LV Diastolic Diameter MM 1.0 cm 4.2 - 5.9 / 3.9 - 5.3 cm LV Systolic Diameter MM 2.2 cm LV Ejection Fraction MM Teich 272.8 % IVS Diastolic Thickness MM 3.7 cm 0.6 - 1.0 / 0.6 - 0.9 cm IVS Systolic Thickness MM 1.4 cm LVPW Diastolic Thickness MM 0.0 cm 0.6 - 1.0 / 0.6 - 0.9 cm LVPW Systolic Thickness MM 1.6 cm RV Diastolic Diameter MM 2.0 cm Aortic Annulus Diameter 3.1 cm LA Ao Ratio MM 1.2 MV E Point Septal Separation 0.7 cm DOPPLER AV Peak Velocity 115.0 cm/s LVOT Peak Velocity 88.0 cm/s AV Area Cont Eq vti 2.5 cm squared AV Area Cont Eq pk 2.6 cm squared MV Area PHT 3.6 cm squared Mitral E to A Ratio 1.0 MV E' Velocity 10.0 cm/s Mitral E to MV E' Ratio 8.8 Mitral E to LV E' Lateral Ratio 8.2 Mitral E to LV E' Septal Ratio 9.7 TR Peak Velocity 147.0 cm/s TR Peak Gradient 8.7 mmHg TV Peak E Velocity 134.0 cm/s Right Atrial Pressure 3.0 mmHg Pulmonary Artery Systolic Pressu 11.6 mmHg FINDINGS Left Ventricle Normal left ventricular size, systolic function and wall thickness, with no regional wall motion abnormalities. Left ventricular ejection fraction is estimated at 70 %. Normal diastolic function. Right Ventricle Normal right ventricular size and systolic function. Tricuspid valve regurgitant jet is inadequate for estimation of RVSP. Right Atrium Normal right atrial size. Left Atrium Normal left atrial size. Mitral Valve Structurally normal mitral valve. No mitral valve stenosis. Trace mitral valve regurgitation. Aortic Valve Structurally normal trileaflet aortic valve. No aortic valve stenosis. No aortic valve regurgitation. Tricuspid Valve Structurally normal tricuspid valve. Trace tricuspid valve regurgitation. Pulmonic Valve Pulmonic valve not well visualized. No pulmonary valve stenosis. Trace pulmonary valve regurgitation. Pericardium No pericardial effusion. Aorta Normal size aortic root and proximal ascending aorta. CONCLUSIONS 1. Normal left ventricular size, systolic function and wall thickness, with no regional wall motion abnormalities. Left ventricular ejection fraction is estimated at 70 %. Normal diastolic function. 2. Normal right ventricular size and systolic function. 3. No significant valvular abnormality. 4. No prior similar studies to compare. Morena Orr MD (Electronically Signed) Final Date: 21 September 2019 21:32 S
[2019-09-22] VITALS (7 sets, daily range): BP systolic 84–104; BP diastolic 50–72; PULSE 71–85; RESP 18–22; TEMP 36.7; O2SAT 93–96
--- NOTE | 2019-09-22 | NMCV_ITS ---
NM kiya perf SPECT r/s* [id number] Jenny Hughes Age: 54 Gender: F : 1965 Exam Date: 09/22/2019 07:34 Ordering Phys: Theo Sanon MD Technologist: ADRIAN Rich Exam Location: [facility] Indications: CHEST PAIN STRESS TEST [facility] IMAGE PROTOCOL Rest/Stress 1 Lexiscan Day Radiopharmaceutical Dose (mCi) Administration Site Administered by Rest: Tc-99m 10.7 IV ADRIAN Rich Sestamibi Stress:Tc-99m 32.4 IV ADRIAN Rich Sestamibi Rest: 22-Sep-2019 60 Discovery 630 Stress: 22-Sep-2019 30 Discovery 630 0.4mg Lexiscan. Images obtained in supine and prone position. SPECT RESULTS Technical Quality: Excellent Raw Data Analysis: Normal Image Corrections: No attenuation or motion correction applied Summed Stress Score: 2 Summed Rest Score: 0 Summed Difference Score: 2 PERFUSION FINDINGS There is small size perfusion abnormality of mild severity of mid inferolateral and apical lateral johnson on supine stress images with improved tracer uptake on prone stress images. This is suggestive of attenuation artifact. FUNCTIONAL RESULTS (calculated via Gated SPECT) Stress Image LV EF (%): 84 Stress EDV (mL):43 TID: 0.93 Stress ESV (mL):7 FUNCTIONAL FINDINGS: The left ventricle is normal in size. Transient Ischemia Dilatation of 0.93. There is hyperdynamic left ventricular systolic function. The left ventricular ejection fraction is hyperdynamic with a value of 84%. There is hyperdynamic left ventricular wall thickening. IMPRESSIONS 1. Myocardial perfusion imaging is normal. 2. The left ventricular ejection fraction is hyperdynamic with a value of 84%. 3. There is hyperdynamic left ventricular wall thickening. 4. This study suggests a low likelihood of angiographically significant coronary artery disease. Morena Orr MD (Electronically Signed) Final Date: 22 September 2019 10:59 S
--- NOTE | 2019-09-22 00:47 | PC.NURSE ---
Patient awakened for VS. Denies discomfort at this time. Just really wanting to go home tomorrow after the stress test... Will monitor.
--- NOTE | 2019-09-22 01:52 | PC.NURSE ---
States earlier, Oh...don't worry about my blood pressure....runs linda low at night. No s/s of distress noted. Denies complaints at present time. Will monitor.
[2019-09-22 03:59] LABS: Basophils # 0.1 10^3/uL (0.0-0.1); Basophils % 0.8 %; Eosinophils # 0.1 10^3/uL (0.0-0.8); Eosinophils % 1.3 %; Hematocrit 39.1 % (37.0-47.0); Hemoglobin 12.5 g/dL (11.5-15.3); Lymphocytes # 3.4 10^3/uL (0.8-4.8); Lymphocytes % 56.4 %; Mean Corpuscular Hemoglobin 30.2 pg (28.0-34.0); Mean Corpuscular Volume 94.4 fL (81-99); Mean Platelet Volume 11.3 fL (7.4-10.4); Monocytes # 0.3 10^3/uL (0.2-0.9); Monocytes % 5.2 %; Neutrophils # 2.2 10^3/uL (1.8-7.7); Nucleated Red Blood Cells % 0 %; Platelet Count 209 10^3/cmm (130-400); Red Blood Count 4.14 10^6/uL (4.1-5.3); Red Cell Distribution Width 12.3 % (12.1-15.1); White Blood Count 6.1 10^3/uL (4.0-10.0)
[2019-09-22 04:17] LABS: Alanine Aminotransferase 7 U/L (0-33); Albumin Level 3.2 g/dL (3.5-5.2); Alkaline Phosphatase 63 IU/L (35-105); Aspartate Amino Transferase 13 U/L (0-32); Blood Urea Nitrogen 12 mg/dL (6-20); Calcium 9.4 mg/dL (8.5-10.5); Chloride 103 mmol/L (98-107); Globulin 3.3 g/dL (1.3-4.6); Glomerular Filtration Rate 74.5 mL/min (90-130); Glucose 96 mg/dL (65-115); Osmolality Calculated 288 mOsm/kg (285-295); Phosphorus 4.3 mg/dL (2.5-4.5); Potassium 4.2 mmol/L (3.5-5.1); Sodium 141 mmol/L (136-145); Total Bilirubin 0.2 mg/dL (0.15-1.2); Total Protein 6.5 g/dL (6.6-8.7)
[2019-09-22 05:50] LABS: Anion Gap 15.2 (5-19); Carbon Dioxide 27 mmol/L (22-29)
[2019-09-22] MEDS: oxyCODONE-APAP 10-325 mg Tablet 1 TAB PO (06:14)
[2019-09-22] MEDS: sucralfate 1 gm Tablet PO ×2 (06:15→12:03)
[2019-09-22] MEDS: regadenoson 0.4 Mg/5 ml Syringe IVP (08:20)
[2019-09-22] MEDS: ondansetron 2 mg/ML SDV 2 mL 4 MG IVP (08:25)
[2019-09-22] MEDS: metoprolol tartrate 25 mg Tablet 12.5 MG PO (09:36)
[2019-09-22] MEDS: gabapentin 300 mg Capsule 600 MG PO (09:36)
[2019-09-22] MEDS: aspirin 81 mg EC Tablet PO (09:36)
[2019-09-22] MEDS: pantoprazole DR 40 mg Tablet PO (09:37)
[2019-09-22] MEDS: isosorbide mononitrate ER 30 mg Tablet 15 MG PO (09:37)
[2019-09-22] MEDS: acyclovir 400 mg Tablet PO (09:37)
--- NOTE | 2019-09-22 12:20 | PC.NURSE ---
patient ambulating in [place] [address] educated patient about the importance of staying on the unit and not going out any doors of the hospital patient verbalized understanding
--- NOTE | 2019-09-22 13:37 | PC.NURSE ---
patient discharge home at this time, Discharge instructions given and explained to patient; verbal understanding obtained. patient accompanied to ER entrance by staff to wait for her ride per patient request.
--- NOTE | 2019-09-22 13:41 | PM.DCS ---
Discharge Providers Date of Admission: 09/21/19 12:10 Date of Discharge: September 22, 2019 Attending Provider at Admission: Dario Ball MD Attending Provider at Discharge: Theo Sanon MD Primary Care Provider: Julia Arroyo DO Diagnoses at Discharge Discharge Diagnosis (1) Nonsustained ventricular tachycardia: Status: Acute (2) Smoker: Status: Acute (3) Chest pain: Status: Acute Reason for Visit Reason for Visit: Reason For Visit: CHEST PAIN Hospital Course Hospital Course: This is a 54-year-old female with a past medical history of peptic ulcer disease, active smoker, past history of alcohol abuse, CAD who presents to the emergency room due to complaints of chest pain. For her chest pain, patient had a cardiac catheterization in 2017 which showed 30% disease in the RCA, she also had an episode of nonsustained V. tach in the emergency room, she had no significant troponin elevation, no significant ST-T wave changes, no significant telemetry changes, she had a cardiac stress test which showed low probability of obstructive CAD. Patient was discharged with a close follow-up with cardiology next week, and if she were to have recurrent chest pain she was advised to come to the emergency room. During her hospitalization, patient was found to have nonsustained V. tach, down in the emergency room, no repeat episodes, discharged on metoprolol 12.5 twice daily, with a Holter monitor for 72 hours. Her echocardiogram showed no wall motion abnormalities, ejection fraction 70%, no significant valvular abnormalities. Physical Exam Const: COMMON NORMALS: no apparent distress and oriented x3 HENMT: COMMON NORMALS: normocephalic HEAD & SCALP: normocephalic Neck/C-Spine: COMMON NORMALS: no JVD Resp: COMMON NORMALS: normal respiratory effort, no retractions, no use of accessory muscles and clear to auscultation bilaterally AUSCULTATION: clear to auscultation bilaterally Cardio: COMMON NORMALS: no JVD, regular rate, regular rhythm, S1 normal heart sound and S2 normal heart sound RATE: regular rate RHYTHM: regular rhythm HEART SOUNDS: S1 normal and S2 normal GI: COMMON NORMALS: normal to inspection, nondistended, normoactive bowel sounds, soft to palpation, non-tender, no hepatosplenomegaly, no masses and no bruits PALPATION: Yes soft and Yes no hepatosplenomegaly Extremity: COMMON NORMALS: normal capillary refill, no clubbing, cyanosis or edema, no calf tenderness and no pedal edema Neuro: COMMON NORMALS: oriented x3 Psych: COMMON NORMALS: mental status grossly normal Discharge Data Data Completed and Pending: Completed Studies During Hospitalization Category Date Time Status Sestamibi Stress Test Request Livia ne Exams 09/21/19 14:14 Completed XR chest 1V mariaa ble [id number] Stat Exams 09/20/19 18:33 Completed NM kiya perf SPECT r/s* [id number] Routin e Nuc Med 09/22/19 Completed CV echo complete* [id number] Routine Ultrasound 09/21/19 22:52 Completed Pending at discharge Category Date Time Status Complete Blood Co unt w/Auto AM LABS Lab 09/23/19 04:00 Ordered Complete Blood Co unt w/Auto AM LABS Lab 09/24/19 04:00 Ordered Comprehensive Met abolic Panel AM LA BS Lab 09/23/19 04:00 Ordered Comprehensive Met abolic Panel AM LA BS Lab 09/24/19 04:00 Ordered Magnesium AM LABS Lab 09/23/19 04:00 Ordered Magnesium AM LABS Lab 09/24/19 04:00 Ordered Phosphorus AM LAB S Lab 09/23/19 04:00 Ordered Phosphorus AM LAB S Lab 09/24/19 04:00 Ordered Labs from last 24 hours 09/22/19 09/22/19 03:20 03:20 WBC 6.1 RBC 4.14 Hgb 12.5 Hct 39.1 MCV 94.4 MCH 30.2 MCHC 32.0 RDW 12.3 Plt Count 209 MPV 11.3 H Neut % (Auto) 36.0 Lymph % (Auto) 56.4 [place] % (Auto) 5.2 Eos % (Auto) 1.3 Baso % (Auto) 0.8 Neut # (Auto) 2.2 Lymph # (Auto) 3.4 [place] # (Auto) 0.3 Eos # (Auto) 0.1 Baso # (Auto) 0.1 Nucleated RBC % (a uto) 0 Nucleated RBCs # 0.0 Sodium 141 Potassium 4.2 Chloride 103 Carbon Dioxide 27 Anion Gap 15.2 BUN 12 Creatinine 0.8 GFR Calculation 74.5 L Glucose 96 Calculated Osmolal ity 288 Calcium 9.4 Phosphorus 4.3 Magnesium 2.0 Total Bilirubin 0.2 AST 13 ALT 7 Alkaline Phosphata se 63 Total Protein 6.5 L Albumin 3.2 L Globulin 3.3 Vitals: Last Vital Signs Temp 98.0 F 09/22/19 13:23 Pulse 73 09/22/19 13:23 Resp 22 H 09/22/19 13:23 BP 104/70 09/22/19 13:23 Pulse Ox 96 09/22/19 13:23 Discharge Plan Discharge Patient Disposition: Home, Self-Care Condition: Stable Prescriptions: New atorvastatin 40 mg Tablet 40 mg PO BEDTIME 30 Days Qty: 30 RF: 0 Nitrostat 0.4 mg Tablet, Sublingual 0.4 mg sublingual Q5M PRN (Reason: Chest Pain) 3 Days Qty: 3 RF: 0 metoprolol tartrate 25 mg Tablet 12.5 mg PO BID 30 Days Qty: 30 RF: 0 Continued isosorbide mononitrate 10 mg tablet 15 mg PO DAILY RF: 0 gabapentin 600 mg tablet 600 mg PO BID RF: 0 sucralfate 1 gram tablet 1 gm PO .d1ivdvt RF: 0 aspirin [Aspir-Low] 81 mg tablet,delayed release (DR/EC) 81 mg PO DAILY RF: 0 acyclovir 400 mg tablet 400 mg PO DAILY RF: 0 pantoprazole [Protonix] 40 mg tablet,delayed release (DR/EC) 40 mg PO DAILY RF: 0 trazodone 100 mg tablet 100 mg PO .at bed Qty: 30 RF: 1 quetiapine [Seroquel] 200 mg tablet 400 mg PO .at bed Qty: 60 RF: 1 paroxetine HCl [Paxil] 10 mg tablet 10 mg PO .HS Qty: 30 RF: 1 cyclobenzaprine 10 mg Tablet 10 mg PO BID RF: 0 estradiol 1 mg Tablet 1 mg PO DAILY RF: 0 Percocet 10-325 mg Tablet 2 tab PO BID RF: 0 Discontinued propranolol 10 mg tablet 10 mg PO BEDTIME RF: 0 naproxen 500 mg Tablet 500 mg PO BID RF: 0 Discharge Orders: Discharge Order (Routine); Ordered 09/22/19 Ordered By: Theo Sanon Other Ambulatory Orders: Holter Monitor (Routine) Timeframe: 1 Day Facility: [facility] - Location: Cardiac Diagnostic Laboratory Ordered By: Theo Sanon Referrals: Dario Moreira MD [Physician] - 1 week (You have an follow-up appointment with [facility]. This appointment is scheduled for September 28 at 2p.m. You will be fitted for an 72 hour holter moniter during this visit. If, you have any questions. Please, call ) Discharge Diet: Cardiac Patient Instructions: Metoprolol (By mouth), Nitroglycerin, Rapid Release (By mouth), Atorvastatin (By mouth), Chest Pain (DC), Chest Pain (GEN), How to Stop Smoking (DC), Cigarette Smoking and Your Health (GEN), Chest Pain Stoplight Activity Restrictions/Additional Instructions: -Please wear Holter monitor for the next 72 hours -Follow-up with Dr. 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
== END 2019-09-22 13:35 | disposition home or self-care (01) | DRG 313 ==
LOC: ER 20:18 → CSU 21:14
PROVIDERS: Admitting Provider Internal Medicine; Emergency Provider Emergency Medicine; Family Provider Family Medicine; PCP Family Medicine; Visit Provider Family Medicine
DX: R07.89 Other chest pain (principal); I47.2 Ventricular tachycardia; B00.89 Other herpesviral infection; I25.10 Atherosclerotic heart disease of native coronary artery without angina pectoris; F17.210 Nicotine dependence, cigarettes, uncomplicated; Z87.11 Personal history of peptic ulcer disease; Z79.82 Long term (current) use of aspirin; Z82.49 Family history of ischemic heart disease and other diseases of the circulatory system; F10.20 Alcohol dependence, uncomplicated; F41.9 Anxiety disorder, unspecified; F31.9 Bipolar disorder, unspecified; Z86.73 Personal history of transient ischemic attack (TIA), and cerebral infarction without residual deficits; I73.9 Peripheral vascular disease, unspecified; F43.12 Post-traumatic stress disorder, chronic; Z86.718 Personal history of other venous thrombosis and embolism
CPT/HCPCS: 12345; 36415; 71045; 78452; 80053; 83735; 83880; 84100; 84443; 84484; 85025; 85378; 85610; 85730; 93005; 93017; 93306; 96372; 96374; 96375; 96376; 99283; 99285; A9500; G0378; J1650; J2270; J2405; J2785; J8499

== ENCOUNTER → 2019-11-05 08:59 | Outpatient (BNVA) | payer MEDICAID, SELFPAY | PROVIDERS: Family Provider Family Medicine; PCP Family Medicine; Visit Provider Counselor Mental Health | DX: F42.9 Obsessive-compulsive disorder, unspecified (principal); F43.12 Post-traumatic stress disorder, chronic; F40.10 Social phobia, unspecified | CPT/HCPCS: 90834 ==

== ENCOUNTER 2024-02-26 17:17 | Emergency (ER) | payer OTHER, MEDICARE, SELFPAY ==
--- NOTE | 2024-02-26 17:22 | ECG_ITS ---
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 Measurements Intervals [place] Rate: 76 P: 83 ID: [id number] QRS: 76 QRSD: 81 T: 77 QT: 411 QTc: 462 Interpretive Statements SINUS RHYTHM POSSIBLE ANTERIOR MYOCARDIAL INFARCTION , OF INDETERMINATE AGE [30 ms Q WAVE IN V3/V4, OR R < 0.2 mV IN V4] Compared to ECG 09/20/2019 20:33:39 Myocardial infarct finding now present Electronically Signed On 02-27-2024 0:19:39 CDT by Rosemary Mendoza M.D. [id number] marissa
[2024-02-26 17:25] VITALS: BP 118/76; PULSE 80; RESP 17; TEMP 36.7; O2SAT 95; BMI 21.4
--- NOTE | 2024-02-26 17:27 | XRR_ITS ---
PROCEDURE INFORMATION: Exam: XR Chest Exam date and time: 02/26/2024 5:46 PM Age: 58 years old Clinical indication: Chest wall pain; Additional info: Cp that radiates to left side today, heart palpitations, dizziness TECHNIQUE: Imaging protocol: Radiologic exam of the chest. Views: 1 view. COMPARISON: CR XR chest 1V portable [id number] 09/20/2019 6:43 PM FINDINGS: Lungs: Stable calcified granulomas in the lungs. No focal consolidation or evidence of pulmonary edema. Pleural spaces: Unremarkable. No pleural effusion. No pneumothorax. Heart/Mediastinum: Stable calcified mediastinal/hilar nodes. Bones/joints: Chronic appearing nondisplaced right posterior 8th rib fracture. XR/XR chest 1V portable [id number] IMPRESSION: 1. No acute cardiopulmonary process. 2. Prior granulomatous disease.
--- NOTE | 2024-02-26 17:40 | ED_ITS ---
HPI - Chest Pain 2 General: Chief Complaint: Chest Pain Stated Complaint: Syncope, Chest pain Time Seen by Provider: 02/26/24 17:23 Source: patient and EMS Mode of arrival: EMS Limitations: no limitations History of Present Illness: 58-year-old female states that this morn ing at 8 AM she had had chest pain and then had a syncopal event. States that she hit her head denies any headache did hit her right lower leg. States she has had some intermittent chest pain throughout the day denies any more syncope. She denies any chest pain currently denies any dyspnea she denies any vomiting or diarrhea Associated symptoms: Reports syncope; Deny abdominal pain, dyspnea, fever(s), nausea or vomiting Related Data Home Medications Medication Instructions Recorded Confirmed acyclovir 400 mg tablet 400 mg PO DAILY 08/19/19 09/20/19 aspirin 81 mg tablet,delayed 81 mg PO DAILY 08/19/19 09/20/19 release (Aspir-Low) gabapentin 600 mg tablet 600 mg PO BID 08/19/19 09/20/19 isosorbide mononitrate 10 mg tablet 15 mg PO DAILY 08/19/19 09/20/19 pantoprazole 40 mg tablet,delayed 40 mg PO DAILY 08/19/19 09/20/19 release (Protonix) sucralfate 1 gram tablet 1 gm PO .[id number] 08/19/19 09/20/19 cyclobenzaprine 10 mg tablet 10 mg PO BID 09/20/19 09/20/19 estradiol 1 mg tablet 1 mg PO DAILY 09/20/19 09/20/19 oxycodone-acetaminophen 10 mg-325 2 tab PO BID 09/20/19 09/20/19 mg tablet (Percocet) Previous Rx's Medication Instructions Recorded paroxetine HCl 10 mg tablet (Paxil) 10 mg PO .HS #30 tabs 09/10/19 quetiapine 200 mg tablet (Seroquel) 400 mg (2 x 200 mg) PO .at bed #60 09/10/19 tabs trazodone 100 mg tablet 100 mg PO .at bed #30 tabs 09/10/19 Allergies Allergy/AdvReac Type Severity Reaction Status Date / Time acetaminophen [From Lortab] Allergy ALGY-Hives Verified 08/04/19 14:33 baclofen Allergy ADR-Faintin Verified 08/04/19 14:33 g hydrocodone [From Lortab] Allergy ALGY-Hives Verified 08/04/19 14:33 ibuprofen Allergy ADR-Vomitin Verified 08/04/19 14:32 g Review of Systems 2 Const: Denies: fever(s), chills, body aches or change in appetite ENMT: Denies: throat pain or dental pain Card: Reports: chest pain and syncope Resp: Denies: dyspnea GI: Denies: abdominal pain, nausea, vomiting or diarrhea Musc: Denies: neck pain or back pain Skin/Breast: Denies: rash Neuro: Denies: headache(s) PFSH ED 2 PFSH: Medical History Peripheral vascular disease INOCENCIA elevated near 1.4 done in 2016 Nicotine dependence, cigarettes, with other nicotine-induced disorders Other stimulant dependence, in remission Alcohol dependence, in remission Obsessive-compulsive disorder, unspecified Post-traumatic stress disorder, chronic Atrial fibrillation Anxiety Hyperlipidemia DVT (deep venous thrombosis) CAD (coronary artery disease) COPD (chronic obstructive pulmonary disease) Pneumonia Hiatal hernia Peptic ulcer disease CVA (cerebral vascular accident) Bipolar disorder Angina pectoris Surgical History H/O cardiac catheterization 2015 Normal coronary vessels EF 70% History of hip surgery History of partial colectomy H/O: hysterectomy Family History (Updated 09/20/19 @ 20:16 by Dario Ball MD) Other CAD (coronary artery disease) Cancer Diabetes Hypertension Social History Smoking and tobacco/nicotine status: light tobacco/nicotine user cigarettes Physical Exam 2 Const: COMMON NORMALS: patient oriented x3 HENMT: COMMON NORMALS: normocephalic and atraumatic HEAD & SCALP: n ormocephalic and atraumatic Eye: COMMON NORMALS: Equal, round and reactive pupils present and EOMs intact bilaterally PUPIL: Yes Equal, round and reactive pupils present Neck/C-Spine: COMMON NORMALS: full ROM and supple Chest: COMMONS NORMALS: normal inspection of the chest and normal palpation of entire chest wall Resp: COMMON NORMALS: normal respiratory effort, No retractions, No use of accessory muscles and clear to auscultation bilaterally AUSCULTATION: clear to auscultation bilaterally Cardio: COMMON NORMALS: regular rate, regular rhythm and No murmurs present (Cardio) RATE: regular rate RHYTHM: regular rhythm GI: COMMON NORMALS: Normal to inspection, nondistended, normoactive bowel sounds present, Soft to palpation, non-tender and no masses PALPATION: Yes Soft to palpation Extremity: COMMON NORMALS: normal to inspection and full ROM Neuro: COMMON NORMALS: patient oriented x3, moves all extremities and no focal motor deficits Psych: COMMON NORMALS: mental status grossly normal, Normal thought process present and cooperative THOUGHT PROCESS: Normal thought process present Skin: COMMON NORMALS: no rashes or lesions noted and no wounds GENERAL SKIN EXAM: no rashes or lesions noted Course 2 Vital Signs: Vital signs: Vital Signs Temperature 98.1 F 02/26/24 17:25 Pulse Rate 63 02/26/24 20:12 Respiratory Rate 20 H 02/26/24 20:12 Blood Pressure 174/98 02/26/24 20:12 Pulse Oximetry 96 02/26/24 20:12 Oxygen Delivery Me thod Room Air 02/26/24 18:30 MDM - Chest Pain Medical Decision Making Patient presents here with intermittent chest pain throughout the day and 1 episode of syncope this morning initial repeat troponin here is negative I did offer admission with her chest pain she states she feels improved like to go home she has no signs of ACS she had no head injury no signs of stroke no signs of pulmonary embolism she is stable for discharge follow-up with PCP return if worsening Medical Records I reviewed the patient's medical records. Lab Data I reviewed the patient's lab results. 02/26/24 17:43 02/26/24 17:43 Radiology Impressions Chest X-Ray 02/26/24 17:27 IMPRESSION: 1. No acute cardiopulmonary process. 2. Prior granulomatous disease. Laboratory Results WBC 5.97 10^3/uL (3.29-11.43) 02/26/24 17:43 RBC 4.41 10^6/uL (3.85-5.65) 02/26/24 17:43 Hgb 13.50 g/dL (11.27-16.99) 02/26/24 17:43 Hct 39.5 % (36-47) 02/26/24 17:43 MCV 89.6 fl (85-98) 02/26/24 17:43 MCH 30.6 pg (27-33) 02/26/24 17:43 MCHC 34.2 g/dL (30-55) 02/26/24 17:43 RDW 13.0 % (12.1-15.1) 02/26/24 17:43 Plt Count 206 10^3/cmm (157-399) 02/26/24 17:43 MPV 10.4 fL (7.4-10.4) 02/26/24 17:43 Neut % (Auto) 55.0 % 02/26/24 17:43 Lymph % (Auto) 37.7 % 02/26/24 17:43 [place] % (Auto) 5.0 % 02/26/24 17:43 Eos % (Auto) 1.3 % 02/26/24 17:43 Baso % (Auto) 0.8 % 02/26/24 17:43 Neut # (Auto) 3.28 10^3/uL (1.8-7.7) 02/26/24 17:43 Lymph # (Auto) 2.3 10^3/uL (0.8-4.8) 02/26/24 17:43 [place] # (Auto) 0.3 10^3/uL (0.2-0.9) 02/26/24 17:43 Eos # (Auto) 0.1 10^3/uL (0.0-0.8) 02/26/24 17:43 Baso # (Auto) 0.1 10^3/uL (0.0-0.1) 02/26/24 17:43 Nucleated RBC % (auto) 0 % 02/26/24 17:43 Nucleated RBCs # 0.0 /100WBC 02/26/24 17:43 Sodium 137 mmol/L (136-145) 02/26/24 17:43 Potassium 3.6 mmol/L (3.5-5.1) 02/26/24 17:43 Chloride 100 mmol/L (98-107) 02/26/24 17:43 Carbon Dioxide 25 mmol/L (22-29) 02/26/24 17:43 Anion Gap 15.6 (5-19) 02/26/24 17:43 BUN 12 mg/dL (6-20) 02/26/24 17:43 Creatinine 0.8 mg/dL (0.5-0.9) 02/26/24 17:43 GFR Calculation 73.4 mL/min (90-130) L 02/26/24 17:43 Glucose 113 mg/dL (65-115) 02/26/24 17:43 Calculated Osmolality 285 mOsm/kg (285-295) 02/26/24 17:43 Calcium 9.2 mg/dL (8.5-10.5) 02/26/24 17:43 Total Bilirubin 0.3 mg/dL (0.15-1.2) 02/26/24 17:43 AST 17 U/L (0-32) 02/26/24 17:43 ALT 11 U/L (0-33) 02/26/24 17:43 Alkaline Phosphatase 81 U/L (35-105) 02/26/24 17:43 Troponin T Baseline 8 ng/L (0-10) 02/26/24 17:43 Troponin T 120 Minute 6.00 ng/L (0-10) 02/26/24 19:16 Delta Troponin T -2.00 ABS# (0-10) L 02/26/24 19:16 Total Protein 6.2 g/dL (6.6-8.7) L 02/26/24 17:43 Albumin 4.1 g/dL (3.5-5.2) 02/26/24 17:43 Globulin 2.1 g/dL (1.3-4.6) 02/26/24 17:43 All radiology interpretation(s) finalized by discharge EKG Data EKG 1: I personally reviewed and interpreted this EKG as follows: EKG interpretation date: 02/26/24 EKG interpretation time: 17:22 Interpretation: nsr hr [address] or t wave abnormalities qrs 81 qtc 441 EKG 2: I personally reviewed and interpreted this EKG as follows: EKG interpretation date: 02/26/24 EKG interpretation time: 19:31 Interpretation: nsr hr [address] or t wave abnormalities qrs 77 qtc 440 Discharge Plan Discharge Patient Disposition: Home Clinical Impression: Chest pain, Syncope Condition: Stable Prescriptions: No Action isosorbide mononitrate 10 mg tablet 15 mg PO DAILY gabapentin 600 mg tablet 600 mg PO BID sucralfate 1 gram tablet 1 gm PO .m3oxrqd aspirin [Aspir-Low] 81 mg tablet,delayed release (DR/EC) 81 mg PO DAILY acyclovir 400 mg tablet 400 mg PO DAILY pantoprazole [Protonix] 40 mg tablet,delayed release (DR/EC) 40 mg PO DAILY trazodone 100 mg tablet 100 mg PO .at bed Qty: 30 1RF quetiapine [Seroquel] 200 mg tablet 400 mg PO .at bed Qty: 60 1RF paroxetine HCl [Paxil] 10 mg tablet 10 mg PO .HS Qty: 30 1RF cyclobenzaprine 10 mg Tablet 10 mg PO BID estradiol 1 mg Tablet 1 mg PO DAILY Percocet 10-325 mg Tablet 2 tab PO BID Discharge Orders: Discharge ED (Routine); Ordered 02/26/24 Ordered By: Zahida Rubio Referrals: Julia Arroyo DO [Family Provider] - 4-7 days Discharge Diet: Advance as tolerated Discharge Activity: Resume usual activity Patient Instructions: Chest Pain (ED), Syncope (ED) Coding Level of Care Code 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
[2024-02-26 17:49] LABS: Basophils # 0.1 10^3/uL (0.0-0.1); Basophils % 0.8 %; Eosinophils # 0.1 10^3/uL (0.0-0.8); Eosinophils % 1.3 %; Hematocrit 39.5 % (36-47); Lymphocytes # 2.3 10^3/uL (0.8-4.8); Lymphocytes % 37.7 %; Mean Corpuscular HGB Conc 34.2 g/dL (30-55); Mean Corpuscular Hemoglobin 30.6 pg (27-33); Mean Corpuscular Volume 89.6 fl (85-98); Mean Platelet Volume 10.4 fL (7.4-10.4); Monocytes # 0.3 10^3/uL (0.2-0.9); Neutrophils # 3.28 10^3/uL (1.8-7.7); Nucleated Red Blood Cells % 0 %; Platelet Count 206 10^3/cmm (157-399); Red Blood Count 4.41 10^6/uL (3.85-5.65); White Blood Count 5.97 10^3/uL (3.29-11.43)
[2024-02-26] MEDS: sodium chloride 0.9% 1,000 ML 999 ML IV (18:02)
[2024-02-26] MEDS: metoclopramide 5 mg/mL SDV 2 mL 10 MG IVP (18:04)
[2024-02-26] MEDS: diphenhydrAMINE 50 mg/mL SDV 1mL IVP (18:04)
[2024-02-26] MEDS: aspirin 81 mg Chew Tablet 324 MG PO (18:05)
[2024-02-26 18:07] LABS: Troponin(5th) Baseline 8 ng/L (0-10)
[2024-02-26 18:09] LABS: Alanine Aminotransferase 11 U/L (0-33); Albumin Level 4.1 g/dL (3.5-5.2); Alkaline Phosphatase 81 U/L (35-105); Anion Gap 15.6 (5-19); Aspartate Amino Transferase 17 U/L (0-32); Blood Urea Nitrogen 12 mg/dL (6-20); Calcium 9.2 mg/dL (8.5-10.5); Carbon Dioxide 25 mmol/L (22-29); Chloride 100 mmol/L (98-107); Creatinine Clr Calc Pharmacy 66.3394; Globulin 2.1 g/dL (1.3-4.6); Glomerular Filtration Rate 73.4 mL/min (90-130); Glucose 113 mg/dL (65-115); Osmolality Calculated 285 mOsm/kg (285-295); Potassium 3.6 mmol/L (3.5-5.1); Sodium 137 mmol/L (136-145); Total Bilirubin 0.3 mg/dL (0.15-1.2); Total Protein 6.2 g/dL (6.6-8.7)
[2024-02-26 18:30] VITALS: BP 142/81; PULSE 62; O2SAT 97
[2024-02-26 19:03] VITALS: BP 140/87; PULSE 62; RESP 19; O2SAT 97
--- NOTE | 2024-02-26 19:31 | ECG_ITS ---
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 Measurements Intervals [place] Rate: 65 P: 80 MN: 199 QRS: 31 QRSD: 77 T: 59 QT: 429 QTc: 447 Interpretive Statements SINUS RHYTHM LOW QRS VOLTAGE IN PRECORDIAL LEADS [QRS DEFLECTION < 1.0 mV IN CHEST LEADS] POSSIBLE ANTERIOR MYOCARDIAL INFARCTION , PROBABLY OLD [30 ms Q WAVE IN V3/V4, OR R < 0.2 mV IN V4] Compared to ECG 02/26/2024 17:22:35 Low QRS voltage now present Myocardial infarct finding still present Electronically Signed On 02-27-2024 0:24:06 CDT by Rosemary Mendoza M.D. [id number]
--- NOTE | 2024-02-26 19:34 | PC.NURSE ---
Neuro exam performed on patient: patient alert and oriented to name, , place, and year. Patient states to nurse that she feels drowsy but is responding appropriately to all questions and stimuli.
--- NOTE | 2024-02-26 20:10 | NUR.SHIFT ---
Out of state daughter called several times during visit. During discharge she called and spoke to this nurse. She expressed that she was unhappy with her being discharged because she is worried about her passing out at home by her self. This nurse provided discharge instructions to patient and daughter.
[2024-02-26 20:12] VITALS: BP 174/98; PULSE 63; RESP 20; O2SAT 96
== END 2024-02-26 20:08 | disposition home or self-care (01) ==
PROVIDERS: Emergency Provider Emergency Medicine; Family Provider Family Medicine
DX: R07.9 Chest pain, unspecified (principal); R55 Syncope and collapse; Z79.82 Long term (current) use of aspirin; F17.210 Nicotine dependence, cigarettes, uncomplicated; E78.5 Hyperlipidemia, unspecified; I25.10 Atherosclerotic heart disease of native coronary artery without angina pectoris; J44.9 Chronic obstructive pulmonary disease, unspecified; Z86.73 Personal history of transient ischemic attack (TIA), and cerebral infarction without residual deficits
CPT/HCPCS: 36415; 71045; 80053; 84484; 85025; 93005; 96374; 96375; 99285; J1200; J2765; J7030